=== PATIENT | female | born 1950 | race Caucasian/White ===

== ENCOUNTER 2020-06-10 07:58 | Outpatient (CLI) | payer MEDICARE, SELFPAY ==
--- NOTE | ~2020-06-10 | MM_ITS ---
EXAMINATION: MM screening rowena BI w karen HISTORY: Screening mammogram TECHNIQUE: Craniocaudal and mediolateral oblique 3-D tomosynthesis images were obtained and synthetic 2-D images were generated. CAD analysis was submitted and interpreted. COMPARISON: 06/09/2019 bilateral digital screening mammogram 05/28/2018 unilateral diagnostic mammogram 05/09/2018, 04/18/2017, 04/17/2016 bilateral digital screening mammogram examinations BREAST PARENCHYMAL COMPOSITION: There are scattered areas of fibroglandular density. FINDINGS: There is stable fibroglandular asymmetry, not significant change since 04/17/2016. There is n o evidence of suspicious mass, calcification, or architectural distortion to suggest malignancy in ei ther breast. There has been no suspicious interval change. IMPRESSION: 1. No mammographic evidence of malignancy. 2. Recommend routine screening mammography in one year. BI-RADS Category 2: Benign finding(s). Reviewed, dictated and finalized at location A.
== END 2020-06-10 07:59 | disposition home or self-care (01) ==
LOC: CHSIMG 08:01
PROVIDERS: PCP Family Medicine; Visit Provider Family Medicine
DX: Z12.31 Encounter for screening mammogram for malignant neoplasm of breast (principal)
CPT/HCPCS: 77063; 77067

== ENCOUNTER 2021-06-13 07:01 | Outpatient (CLI) | payer MEDICARE, SELFPAY ==
--- NOTE | ~2021-06-13 | DEXA_ITS ---
Bone Density Report Name: Grisel Singh Age: 70 Sex: Female Ethnicity: White Date of : 1950 Indication: postmenopausal; screening for osteoporosis; height loss; Referring Provider: Sofia, Jose Alejandro Study: Bone densitometry was performed. Exam Date: June 13, 2021 Accession number: [id number] Bone Density: Region BMD T-score Z-score Classification AP Spine(L1-L4) 0.991 -0.5 1.6 Normal Femoral Neck (Left) 0.677 -1.5 0.3 Osteopenia Total Hip (Left) 0.839 -0.8 0.7 Normal Femoral Neck (Right) 0.697 -1.4 0.5 Osteopenia Total Hip (Right) 0.810 -1.1 0.5 Osteopenia Femoral Neck Mean 0.687 -1.5 0.4 Osteopenia Total Hip Mean 0.824 -1.0 0.6 Normal World Health Organization criteria for BMD impression classify patients as: Normal (T-score at or above -1.0), Osteopenia (T-score between -1.0 and -2.5), or Osteoporosis (T-score at or below -2.5). 10-year Fracture Risk(1): Major Osteoporotic Fracture 10% Hip Fracture 1.5% Reported Risk Factors: [place] (), Neck BMD=0.677, BMI=27.5 (1) FRAX(R) Version 3.08. Fracture probability calculated for an untreated patient. Fracture probability may be lower if the patient has received treatment. Clinical Information Provided by Patient: Has used the following medications: Vitamin D Patient maximum height was 66 Menopause Age: 45 Onset of menses at age 13 Number of children 2 Impression: The patient has low bone mass, based on the Left Femoral Neck T-score. Discussion: BONE DENSITY IS LOW AT ONE OR MORE SKELETAL SITES. This patient's lowest T-score is low at one or more skeletal sites. It meets the World Health Organization's (WHO) criteria for ?low bone mass? (T-score between -1.0 and -2.5). The patient's 10-year risk of fracture as calculated by FRAX is less than the threshold where pharmacological therapy is recommended by the National Osteoporosis Foundation (NOF). However, all treatment decisions require clinical judgment and consideration of individual patient factors, including patient preferences, comorbidities, previous drug use, risk factors not captured in the FRAX model (e.g., frailty, falls, vitamin D deficiency, increased bone turnover, interval significant decline in bone density) and possible under or overestimation of fracture risk by FRAX. The patient should follow a healthful lifestyle (good nutrition with adequate calcium and vitamin D, and appropriate weight-bearing exercise). Follow-Up: Consider repeating this study in 2 to 3 years to reassess this patient's status, or sooner if there is some new clinical indication. Reported by: Dr. Joe Elliott on 06/13/2021 7:42:00 AM. Reviewed, dictated and finalized at location A.
--- NOTE | ~2021-06-13 | MM_ITS ---
EXAMINATION: MM screening rowena BI w karen HISTORY: Screening TECHNIQUE: Craniocaudal and mediolateral oblique 3-D tomosynthesis images were obtained and synthetic 2-D images were generated. CAD analysis was submitted and interpreted. COMPARISON: Comparison to multiple prior studies sequentially, with oldest reviewed study dated 09/2015. BREAST PARENCHYMAL COMPOSITION: There are scattered areas of fibroglandular density. FINDINGS: There are bilateral breast asymmetries in the periareolar location of both breasts as well as the upper outer quadrant of the left breast. There are no suspicious calcifications. IMPRESSION: 1. Bilateral breast asymmetries. 2. Additional spot compression and mediolateral views with possible follow-up breast ultrasound recom mended. BI-RADS Category 0: Incomplete: Needs additional imaging evaluation. Reviewed, dictated and finalized at location A. IMPRESSION: 1. Bilateral breast asymmetries. 2. Additional spot compression and mediolateral views with possible follow-up b reast ultrasound recommended. BI-RADS Category 0: Incomplete: Needs additional imaging evaluation.
== END 2021-06-13 07:02 | disposition home or self-care (01) ==
LOC: CHSIMG 07:03
PROVIDERS: PCP Family Medicine; Visit Provider Family Medicine
DX: Z12.31 Encounter for screening mammogram for malignant neoplasm of breast (principal); Z78.0 Asymptomatic menopausal state
CPT/HCPCS: 77063; 77067; 77080

== ENCOUNTER 2021-07-04 08:35 | Outpatient (CLI) | payer MEDICARE, SELFPAY ==
--- NOTE | ~2021-07-04 | MMUS_ITS ---
EXAMINATION: MM diagnostic rowena BI w karen, US breast BI limited HISTORY: Follow-up breast asymmetries TECHNIQUE: Additional 3-D tomosynthesis images of the breasts were performed and synthetic 2-D images were generated. CAD analysis was submitted and interpreted. High resolution limited bilateral breast ultrasound was performed. COMPARISON: 06/13/2021 BREAST PARENCHYMAL COMPOSITION: Breast composed of scattered areas of fibroglandular density. FINDINGS: MAMMOGRAPHIC FINDINGS: There is a mass mid lateral aspect of the right breast adjacent to the areola which is partially obsc ured by fibroglandular tissue. There is focal asymmetry subareolar aspect of the left breast on CC vi ew, not well visualized on medial lateral or MLO views. ULTRASOUND: Right breast ultrasound: At 12:00 near the nipple there is a complex heterogeneous hypoechoic mass wi th posterior shadowing. The mass is poorly circumscribed limiting size evaluation. Left breast ultrasound: At 12:00, 2 cm from the nipple, there is an oval circumscribed hypoechoic mas s measuring 6 mm maximum dimension. No posterior features or internal vascularity. No other discrete masses are identified. IMPRESSION: 1. Irregular hypoechoic right breast mass at 12:00 near the nipple which may correspond to the mammog raphic finding. Ultrasound-guided right breast biopsy recommended. BI-RADS CATEGORY 4-SUSPICIOUS ABNO RMALITY 2. Probable benign left breast mass at 12:00, 2 cm from the nipple. Six-month follow-up left breast u ltrasound recommended. BI-RADS CATEGORY 3-PROBABLY BENIGN FINDING Reviewed, dictated and finalized at location B. IMPRESSION: 1. Irregular hypoechoic right breast mass at 12:00 near the nipple which may co rrespond to the mammographic finding. Ultrasound-guided right breast biopsy rec ommended. BI-RADS CATEGORY 4-SUSPICIOUS ABNORMALITY 2. Probable benign left breast mass at 12:00, 2 cm from the nipple. Six-month f ollow-up left breast ultrasound recommended. BI-RADS CATEGORY 3-PROBABLY BENIGN FINDING
== END 2021-07-04 08:36 | disposition home or self-care (01) ==
PROVIDERS: PCP Family Medicine; Visit Provider Family Medicine
DX: R92.8 Other abnormal and inconclusive findings on diagnostic imaging of breast (principal)
CPT/HCPCS: 76642; 77062; 77066; G0279